=== PATIENT | female | born 2000 | race Caucasian/White ===

== ENCOUNTER 2020-12-13 17:51 | Emergency (ER) | payer BC, OTHER ==
[~2020-12-13 17:51] MED LIST: ASPIR 8181 MG PO; BACTRIM DS TAB1 EACH PO; CEFUROXIME500 MG PO; IBUPROFEN600 MG PO; NORCO 7.5-3251 EACH PO; OMNICEF 300 MG300 MG PO; PYRIDIUM100 MG PO; PYRIDIUM200 MG PO; ZOFRAN4 MG PO
[2020-12-13 19:34] LABS: HEMOGLOBIN 13.5 gm/dl (12.3-15.3); RED BLOOD COUNT 5.22 M/UL (4.00-5.10); WHITE BLOOD COUNT 12.3 K/UL (4.5-11.0)
[2020-12-13 19:48] LABS: BUN/CREATININE RATIO 13 (0-10)
== END 2020-12-13 21:30 | disposition home or self-care (01) ==
LOC: ER1 17:51
PROVIDERS: Physician Assistant
DX: R10.9 Unspecified abdominal pain (principal); R10.812 Left upper quadrant abdominal tenderness; R30.0 Dysuria; E11.9 Type 2 diabetes mellitus without complications; F17.200 Nicotine dependence, unspecified, uncomplicated; I10 Essential (primary) hypertension; Z87.442 Personal history of urinary calculi
CPT/HCPCS: 80053; 81001; 83690; 84703; 85025; 99284